=== PATIENT | male | born 1970 | race African-American/Black ===

== ENCOUNTER 2021-04-13 10:21 | Emergency (ER) | payer MEDICAID ==
[~2021-04-13] VITALS: Ht 185.4 cm; Wt 86.0 kg
[2021-04-13] MEDS ORDERED: SODIUM CHLORIDE 0.9% 1,000 ML IV ONE (10:45)
[2021-04-13] MEDS ORDERED: VISCOUS LIDOCAINE 2% 15 ML UDC PO NR (11:00)
[2021-04-13] MEDS ORDERED: MORPHINE SULFATE 4 MG/ML CPJ (NOT FOR IM USE) IV NR (11:00)
[2021-04-13] MEDS ORDERED: MAGNESIUM/ALUMINUM HYDROXIDE/SIMETHICONE 30ML UDC PO NR (11:00)
[2021-04-13] MEDS ORDERED: METOCLOPRAMIDE HCL 10MG/2ML VIAL IV NR (11:00)
[2021-04-13] MEDS ORDERED: PANTOPRAZOLE SODIUM 40 MG/VIAL IV NR (11:00)
[2021-04-13 11:24] LABS: BASOPHILS % 0.3 % (0.0-2.0); HEMATOCRIT. 42.1 % (42.0-52.0); HEMOGLOBIN. 14.6 g/dL (14.0-18.0); LYMPHOCYTES % 13.5 % (20.0-50.0); MEAN CORPUSCULAR HEMOGLOBIN 30.9 pg (28.0-32.0); MEAN CORPUSCULAR VOLUME 89.3 fL (80.0-94.0); MEAN PLATELET VOLUME 8.4 fl (7.4-10.4); MONOCYTES % 6.1 % (2.0-8.0); NEUTROPHILS % 80.1 % (40.0-76.0); PLATELET 211 x1000/uL (130-400); RED BLOOD CELL COUNT 4.71 mill/uL (4.7-6.1); RED CELL DISTRIBUTION WIDTH 13.6 % (11.6-14.6)
[2021-04-13 11:31] LABS: CHLORIDE 96 mEq/L (98-107)
[2021-04-13 11:35] LABS: PARTIAL THROMBOPLASTIN TIME 25.4 sec (23.4-31.0); PROTHROMBIN TIME 10.8 sec (9.6-11.0)
[2021-04-13] MEDS ORDERED: METF-414 MT (12:55)
[2021-04-13] MEDS ORDERED: T3 PO (12:55)
[2021-04-13] MEDS ORDERED: OMEP40CA12 MT (12:55)
[2021-04-13 13:43] VITALS: BP 134/70
== END 2021-04-13 13:45 | disposition home or self-care (01) ==
LOC: ER 10:21
DX: K29.00 Acute gastritis without bleeding (principal); E11.9 Type 2 diabetes mellitus without complications; Z87.828 Personal history of other (healed) physical injury and trauma; Z98.890 Other specified postprocedural states
CPT/HCPCS: 36415; 71045; 80053; 83690; 83880; 84484; 85025; 85610; 85730; 93005; 96374; 96375; 99285; C9113; J2270; J2765

== ENCOUNTER 2022-07-06 16:18 | Emergency (ER) | payer MEDICAID ==
[~2022-07-06] VITALS: Ht 188 cm; Wt 91.0 kg
[~2022-07-06 16:18] MED LIST: METF-414 MT; OMEP40CA20 MT; T3 PO
[2022-07-06 16:21] VITALS: BP 141/104
== END 2022-07-06 19:29 | disposition left against medical advice (07) ==
LOC: ER 16:18
DX: Z53.21 Procedure and treatment not carried out due to patient leaving prior to being seen by health care provider (principal)
CPT/HCPCS: 82962

== ENCOUNTER 2023-06-05 13:08 | Emergency (ER) | payer MEDICAID ==
[~2023-06-05] VITALS: Ht 188 cm; Wt 97.0 kg
[2023-06-05 13:21] VITALS: BP 130/100; PULSE 110; RESP 20; TEMP 98.5; O2SAT 100
[2023-06-05] MEDS ORDERED: MAGNESIUM/ALUMINUM HYDROXIDE/SIMETHICONE 30ML UDC PO STA (13:23)
[2023-06-05 14:00] LABS: BASOPHILS % 0.5 % (0.0-2.0); EOSINOPHILS % 0.1 % (0.0-5.0); HEMATOCRIT. 48.7 % (42.0-52.0); HEMOGLOBIN. 16.4 g/dL (14.0-18.0); LYMPHOCYTES % 10.9 % (20.0-50.0); MEAN CORPUSCULAR HEMOGLOBIN 30.7 pg (28.0-32.0); MEAN CORPUSCULAR HGB CONC 33.6 g/dL (31.0-37.0); MEAN CORPUSCULAR VOLUME 91.4 fL (80.0-94.0); MEAN PLATELET VOLUME 8.7 fl (7.4-10.4); MONOCYTES % 6.9 % (2.0-8.0); NEUTROPHILS % 81.6 % (40.0-76.0); PLATELET 246 x1000/uL (130-400); RED BLOOD CELL COUNT 5.33 mill/uL (4.7-6.1); RED CELL DISTRIBUTION WIDTH 13.1 % (11.6-14.6); WHITE BLOOD COUNT 9.1 x1000/uL (4.5-11.0)
[2023-06-05 14:10] LABS: CHLORIDE 87 mEq/L (98-107); INDEX HEMOLYSI 1 (1-3); INDEX ICTERIC 1 (1-4); INDEX LIPEMIC 1 (1-3); POTASSIUM 3.9 mEq/L (3.5-5.1); SODIUM 129 mEq/L (136-145)
[2023-06-05 14:18] LABS: CLARITY URINE CLEAR (CLEAR); COLOR URINE YELLOW (YELLOW); GLUCOSE URINE 3+ (NEGATIVE); KETONES URINE 2+ (NEGATIVE); LEUKOCYTE ESTERASE URINE NEGATIVE (NEGATIVE); NITRITE URINE NEGATIVE (NEGATIVE); OCCULT BLOOD URINE NEGATIVE (NEGATIVE); PROTEIN URINE 1+ (NEGATIVE); SPECIFIC GRAVITY URINE 1.045 (1.005-1.030)
[2023-06-05 14:21] LABS: BACTERIA URINE NONE SEEN; RBC URINE NONE SEEN /hpf (0-2); WBC URINE NONE SEEN /hpf (0-2); YEAST URINE NONE SEEN
[2023-06-05 14:35] LABS: FINE GRANULAR CASTS URINE 0-5 /lpf; HYALINE CASTS URINE 0-5 /lpf; MUCUS URINE 2+ /lpf (NONE/TRACE); SQUAMOUS EPITHELIAL CELL URINE FEW /lpf (RARE/1+)
[2023-06-05 14:46] LABS: CARBON DIOXIDE 29 mEq/L (21-32)
[2023-06-05 14:50] LABS: ALBUMIN 4.3 g/dL (3.4-5.0); CALCIUM 9.4 mg/dL (8.5-10.1); CREATININE 0.8 mg/dL (0.6-1.3); GLUCOSE 450 mg/dL (70-105); PROTEIN TOTAL 8.1 g/dL (6.0-8.3); UREA NITROGEN BLOOD 26 mg/dL (7-21)
[2023-06-05 14:51] LABS: ALANINE AMINOTRANSFERASE 24 IU/L (13-61); ASPARTATE AMINOTRANSFERASE 15 IU/L (15-37); ETHANOL BLOOD < 10 mg/dL (<10); TROPONIN I HIGH SENSITIVITY 4 ng/L (<78)
[2023-06-05 15:05] LABS: *AMPHETAMINES SCREEN URINE NEGATIVE (NEGATIVE); *BARBITURATES SCREEN URINE NEGATIVE (NEGATIVE); *BENZODIAZEPINES SCREEN URINE NEGATIVE (NEGATIVE); *COCAINE SCREEN URINE PRESUMTIVE POSITIVE (NEGATIVE); CANNABINOID URINE SCREEN PRESUMTIVE POSITIVE (NEGATIVE); ECSTASY MDMA SCREEN URINE NEGATIVE (NEGATIVE); OPIATES URINE SCREEN NEGATIVE (NEGATIVE); PHENCYCLIDINE URINE SCREEN NEGATIVE (NEGATIVE)
[2023-06-05] MEDS ORDERED: MAGNESIUM/ALUMINUM HYDROXIDE/SIMETHICONE 30ML UDC PO NR (18:00)
[2023-06-05 18:26] LABS: BILIRUBIN TOTAL 1.5 mg/dL (0.1-1.0)
[2023-06-05] MEDS ORDERED: MAG-55 MT (19:14)
== END 2023-06-05 19:26 | disposition home or self-care (01) ==
LOC: ER 13:33
DX: R10.13 Epigastric pain (principal); E11.65 Type 2 diabetes mellitus with hyperglycemia; F12.10 Cannabis abuse, uncomplicated
CPT/HCPCS: 36415; 76705; 80053; 80305; 80320; 81003; 84484; 85025; 93005; 99291; G0480

== ENCOUNTER 2024-09-01 11:58 | Emergency (ER) | payer MEDICAID ==
[~2024-09-01] VITALS: Ht 182.9 cm; Wt 86.0 kg
[~2024-09-01 11:58] MED LIST changes: +MAG-55 MT
[2024-09-01 11:59] VITALS: O2SAT 97
[2024-09-01 12:05] VITALS: BP 135/84; PULSE 63; RESP 18; O2SAT 99
== END 2024-09-01 21:26 | disposition left against medical advice (07) ==
LOC: ER 11:58
DX: R07.81 Pleurodynia (principal); E11.9 Type 2 diabetes mellitus without complications; Z53.21 Procedure and treatment not carried out due to patient leaving prior to being seen by health care provider